=== PATIENT | male | born 1970 | race Caucasian/White ===

== ENCOUNTER 2017-09-04 18:10 | Emergency (ER) | payer OTHER ==
[~2017-09-04] VITALS: Ht 175.3 cm; Wt 54.8 kg
[~2017-09-04 18:10] MED LIST: FLEXERIL10 MG PO; TORADOL10 MG PO
[2017-09-04 18:13] VITALS: BP 136/79
== END 2017-09-05 02:26 | disposition left against medical advice (07) ==
LOC: EME 18:10
DX: R68.89 Other general symptoms and signs (principal); V89.2XXA Person injured in unspecified motor-vehicle accident, traffic, initial encounter; Z53.21 Procedure and treatment not carried out due to patient leaving prior to being seen by health care provider
CPT/HCPCS: 73502; 73564